=== PATIENT | male | born 1970 | race Caucasian/White ===

== ENCOUNTER 2016-12-02 15:58 | Emergency (ER) | payer OTHER ==
[2016-12-02 16:49] VITALS: RESP 16
--- NOTE | 2016-12-02 17:04 | EDPHY ---
H & P Time Seen by Provider: 12/02/16 16:03 HPI/ROS: CHIEF COMPLAINT: Left knee laceration HISTORY OF PRESENT ILLNESS: 46-year-old male presents emergency department a laceration to his left knee from a watch parts grinder. Patient ambulatory after incident. Tetanus is up-to-date, he denies numbness or tingling in this leg, denies other complaints. Smoking Status: Current every day smoker Physical Exam: GEN: Awake, alert, oriented, no acute distress RESP: nl resp effort MSK: Left knee with full active flexion and extension, sensation intact to light touch, 2+ pedal pulses SKIN: 4 cm vertical superficial laceration/maceration to left knee just medial to patella, no tendon injury Constitutional: Initial Vital Signs Temperature (C) 36.9 C 12/02/16 15:58 Heart Rate 82 12/02/16 15:58 Respiratory Rate 16 12/02/16 15:58 Blood Pressure 104/77 12/02/16 15:58 O2 Sat (%) 95 12/02/16 15:58 O2 Delivery Mode Room Air Allergies/Adverse Reactions: No Known Allergies Allergy (Verified 12/02/16 16:44) Home Medications: Medication Instructions Recorded NK [No Known Home Meds] 12/02/16 MDM/Departure - MDM Imaging Results: Imaging Impressions Knee X-Ray 12/02/16 16:22 Impression: Negative for fracture or radiopaque foreign body.. Imaging: I viewed and interpreted images myself Procedures: Procedure: Laceration repair. Verbal consent was obtained from the patient. The 4 cm laceration on the left knee was anesthetized using 1% lidocaine with epinephrine. The wound was carefully irrigated by the emergency department maintenance mechanic technician. Next, the wound was prepped and draped in sterile fashion and explored to its base with a gloved finger. There were no deep structures involved. No tendon injury was identified. No vascular injury was identified. No foreign bodies were identified. The wound was repaired with 4.0 nylon, 8 simple interrupted sutures. The wound repair was simple. Multiple wound margins required revising. The procedure was performed by myself. Tetanus and antibiotic status were addressed. - Depart Disposition: Home, Routine, Self-Care Clinical Impression: Laceration of left knee Qualifiers: Encounter type: initial encounter Qualified Code(s): S81.012A - Laceration without foreign body, left knee, initial encounter Condition: Good Instructions: Laceration (ED) Additional Instructions: Return to the emergency department 12-14 days for suture removal, return sooner for any signs of infection. Referrals: Patient,NotPresent [Unknown] - As per Instructions
[2016-12-02 18:00] VITALS: BP 118/82; PULSE 67; TEMP 98.1; O2SAT 96
== END 2016-12-02 17:58 | disposition home or self-care (01) ==
PROC: 0HQLXZZ Repair Left Lower Leg Skin, External Approach (ICD-10-PCS; principal; 2016-12-02)
DX: S81.012A Laceration without foreign body, left knee, initial encounter (principal); F17.200 Nicotine dependence, unspecified, uncomplicated; W45.8XXA Other foreign body or object entering through skin, initial encounter